=== PATIENT | male | born 2000 | race Caucasian/White ===

== ENCOUNTER 2024-06-23 12:53 | Emergency (ER) | payer OTHER, SELFPAY ==
--- NOTE | ~2024-06-23 | CT_ITS ---
EXAMINATION: CT abdomen pelvis w con DATE: 06/23/2024 14:18 INDICATION: Bilateral lower quadrant abdominal pain TECHNIQUE: Computed tomography (CT) of the abdomen and pelvis was performed with 100 mL Omnipaque-350 intravenous contrast. Automated exposure control and iterative reconstruction technique were employe d. The dose-length product was 831.18 mGy-cm. COMPARISON: None FINDINGS: Lung bases are clear. Heart size normal. No pericardial or pleural effusion. Diffuse hepatic steatosi s with focal sparing along the gallbladder fossa. Gallbladder, spleen, pancreas, bilateral adrenal gl ands and kidneys are normal. Normal retrocecal appendix. There is mild inflammatory stranding in the left lower quadrant surrounding an ovoid macroscopic fat attenuation epiploic appendage arising from the proximal sigmoid colon. No bowel obstruction. Bladder is normal. Small fat-containing left inguin al hernia. Trace amount of likely reactive free fluid in the pelvis. No abscess or free intraperitone al gas. No pathologically enlarged abdominal or pelvic lymphadenopathy. Bones are unremarkable. IMPRESSION: 1. Left lower quadrant epiploic appendagitis at the proximal sigmoid colon Reviewed, dictated and finalized at location B. [facility] COURT CLERK
[2024-06-23 12:55] VITALS: BP 160/87; PULSE 91; RESP 18; TEMP 36.3; O2SAT 99
[2024-06-23 13:34] LABS: Basophils Absolute Auto 0.1 K/mm3 (0.0-0.1); Basophils Percent Auto 0.4 % (0.2-1.2); Eosinophils Absolute Auto 0.1 K/mm3 (0-0.3); Eosinophils Percent Auto 0.8 % (0-4.4); Hematocrit 44.2 % (42.0-52.0); Hemoglobin 15.8 g/dL (14.0-18.0); Immature Granulocyte Absolute 0.01 K/mm3 (0.00-0.031); Immature Granulocyte Percent A 0.1 % (0-0.5); Lymphocytes Absolute Auto 4.04 K/mm3 (0.9-3.2); Lymphocytes Percent Auto 36.2 % (18.3-44.2); Mean Corpuscular HGB Conc 35.7 g/dl (32-36); Mean Corpuscular Hemoglobin 29.9 pg (26-34); Mean Corpuscular Volume 83.6 fl (80-100); Mean Platelet Volume 9.7 fl (7.4-10.4); Monocytes Absolute Auto 0.8 K/mm3 (0.1-0.6); Monocytes Percent Auto 7.5 % (2.6-8.5); Neutrophils Absolute Auto 6.1 K/mm3 (1.3-6.7); Platelet Count Result 274 k/mm3 (150-375); Red Blood Count 5.29 M/mm3 (4.6-6.20); White Blood Count 11.2 K/mm3 (4.5-10.0)
[2024-06-23 13:45] LABS: Alanine Aminotransferase 57 U/L (6-50); Alkaline Phosphatase 59 U/L (38-126); Anion Gap 9 mmol/L (4-12); Aspartate Amino Transferase 36 U/L (17-59); Bilirubin,Total 0.7 mg/dL (0.2-1.3); Blood Urea Nitrogen 10 mg/dL (9-20); Calcium 9.4 mg/dL (8.4-10.2); Carbon Dioxide 27 mmol/L (22-30); Chloride 103 mmol/L (98-107); Estimated CRCL calculation 140 ml/min; Estimated Glomerular Filt Rate > 60; Glucose 100 mg/dL (65-110); Lipase 40 U/L (23-300); Potassium 3.7 mmol/L (3.4-5.0); Sodium 139 mmol/L (137-145)
[2024-06-23 13:51] VITALS: BP 134/90; PULSE 77; RESP 14; O2SAT 100
--- NOTE | 2024-06-23 14:13 | ED.GENADULT ---
HPI - General Adult General Chief complaint: Abdominal Pain Stated complaint: LLQ pain with tenderness Time Seen by Provider: 06/23/24 13:06 History of Present Illness HPI narrative: Patient is a 23-year-old male who presents ER with lower abdominal pain. Began yesterday. Located in bilateral lower quadrants but worse on left side. No diarrhea. No fevers or chills or sweats. Has found no alleviating factors. No urinary symptoms. Was seen at urgent care which showed a normal urinalysis. Related Data Allergies Allergy/AdvReac Type Severity Reaction Status Date / Time No Known Allergies Allergy Unverified 02/11/12 19:37 Review of Systems Review of Systems: All systems reviewed & are unremarkable except as noted in HPI and below Constitutional: Constitutional: Reports no additional constitutional complaints ENT: Reports system reviewed and no additional complaints, except as documented Cardiovascular: Cardiovascular: Reports no additional cardiovascular complaints Respiratory: Respiratory: Reports no additional respiratory complaints Gastrointestinal: Gastrointestinal: Reports abdominal pain, Denies diarrhea, Denies nausea and Denies vomiting Integumentary/Breasts: Skin/Breast: Reports system reviewed and no additional complaints, except as docu PMFSH Past Medical History Medical History (Updated 06/23/24 @ 15:27 by Silver Powers MD) Healthy adult male Surgical History Surgical History (Updated 06/23/24 @ 14:15 by Silver Powers MD) No history of previous surgery Exam Narrative: GENERAL: Well-appearing, well-nourished, and in no acute distress. HEAD: Normocephalic, atraumatic. ENT: Mucous membranes moist. CHEST: Clear to auscultation. No respiratory distress. HEART: Regular rate and rhythm. Normal peripheral pulses. ABDOMEN: Soft, tender palpation bilateral lower quadrants left greater than right with guarding, nondistended. EXTREMITIES: Normal range of motion. No edema. SKIN: Warm, dry, no rash. NEURO: Alert and oriented x3. PSYCH: Normal mood and affect. Course Vital Signs Vital signs: Vital Signs Temperature 97.4 F L 06/23/24 12:55 Pulse Rate 91 06/23/24 12:55 Respiratory Rate 18 06/23/24 12:55 Blood Pressure 160/87 H 06/23/24 12:55 Pulse Oximetry 99 06/23/24 12:55 Oxygen Delivery Room Air 06/23/24 12:55 Temperature 98.5 F 06/23/24 15:45 Pulse Rate 74 06/23/24 15:45 Respiratory Rate 15 06/23/24 15:45 Blood Pressure 117/75 06/23/24 15:45 Pulse Oximetry 100 06/23/24 15:45 Oxygen Delivery Room Air 06/23/24 12:55 Medical Decision Making Vital Signs Vital Signs: Vital Signs Temperature 97.4 F L 06/23/24 12:55 Pulse Rate 91 06/23/24 12:55 Respiratory Rate 18 06/23/24 12:55 Blood Pressure 160/87 H 06/23/24 12:55 Pulse Oximetry 99 06/23/24 12:55 Oxygen Delivery Room Air 06/23/24 12:55 Temperature 98.5 F 06/23/24 15:45 Pulse Rate 74 06/23/24 15:45 Respiratory Rate 15 06/23/24 15:45 Blood Pressure 117/75 06/23/24 15:45 Pulse Oximetry 100 06/23/24 15:45 Oxygen Delivery Room Air 06/23/24 12:55 Lab Data 06/23/24 13:27 06/23/24 13:27 Labs: Lab Results 06/23/24 Range/Units 13:27 WBC 11.2 H (4.5-10.0) K/mm3 RBC 5.29 (4.6-6.20) M/mm3 Hgb 15.8 (14.0-18.0) g/dL Hct 44.2 (42.0-52.0) % MCV 83.6 (80-100) fl MCH 29.9 (26-34) pg MCHC 35.7 (32-36) g/dl RDW 12.0 (11.5-14.5) % Plt Count 274 (150-375) k/mm3 MPV 9.7 (7.4-10.4) fl Immature Gran % (Auto) 0.1 (0-0.5) % Neut % (Auto) 55.0 (45.5-73.1) % Lymph % (Auto) 36.2 (18.3-44.2) % [place] % (Auto) 7.5 (2.6-8.5) % Eos % (Auto) 0.8 (0-4.4) % Baso % (Auto) 0.4 (0.2-1.2) % Lymph # (Auto) 4.04 H (0.9-3.2) K/mm3 [place] # (Auto) 0.8 H (0.1-0.6) K/mm3 Eos # (Auto) 0.1 (0-0.3) K/mm3 Baso # (Auto) 0.1 (0.0-0.1) K/mm3 Abs Immat Gran (auto) 0.01 (0.00-0.031) K/mm3 Absolute Neuts (auto) 6.1 (1.3-6.7) K/mm3 Absolute Nucleated RBC 0.000 (0.0-0.012) K/mm3 Nucleated RBC % 0.0 (0.0-0.2) % Sodium 139 (137-145) mmol/L Potassium 3.7 (3.4-5.0) mmol/L Chloride 103 (98-107) mmol/L Carbon Dioxide 27 (22-30) mmol/L Anion Gap 9 (4-12) mmol/L BUN 10 (9-20) mg/dL Creatinine 0.80 (0.7-1.3) mg/dL Estim Creat Clear Calc 140 ml/min Estimated GFR > 60 (59 - ) Glucose 100 (65-110) mg/dL Calcium 9.4 (8.4-10.2) mg/dL Total Bilirubin 0.7 (0.2-1.3) mg/dL AST 36 (17-59) U/L ALT 57 H (6-50) U/L Alkaline Phosphatase 59 (38-126) U/L Total Protein 9.0 H (6.3-8.2) g/dL Albumin 5.0 (3.5-5.1) g/dL Lipase 40 (23-300) U/L Imaging Data Radiologist's impression: ITS Impressions Abdomen/Pelvis CT 06/23/24 14:23 IMPRESSION: 1. Left lower quadrant epiploic appendagitis at the proximal sigmoid colon Discharge Plan Discharge Clinical Impression: Epiploic appendagitis Patient Disposition: Home, Self-Care Condition: Stable Instructions: Epiploic Appendagitis (ED) Additional Instructions: Return to the emergency department if you develop severe abdominal pain, severe nausea and vomiting to the point where you are unable to keep down fluids, if you develop chest pain or difficulty breathing, blood in your stool, dizziness or fainting, or if you develop any other new or concerning symptoms as these could be signs of more serious medical illness. Try to stay well hydrated. Prescriptions: New hydrocodone-acetaminophen 5-325 mg tablet 1 tablet PO Q6H PRN (Reason: pain) Qty: 10 0RF naproxen 375 mg tablet 375 mg PO BID Qty: 14 0RF Follow-up/Referrals: Tripp Lr MD [Physician] - 1 Week PHYSICIAN,CARBIDE OPERATOR [Primary Care Provider] - Stand Alone Forms: Work/School Release IP
[2024-06-23 15:45] VITALS: BP 117/75; PULSE 74; RESP 15; TEMP 36.9; O2SAT 100
== END 2024-06-23 15:45 | disposition home or self-care (01) ==
PROVIDERS: Emergency Provider Emergency Medicine
DX: K63.89 Other specified diseases of intestine (principal)
CPT/HCPCS: 36415; 74177; 80053; 83690; 85025; 99284; Q9967

== ENCOUNTER 2024-11-29 11:19 | Emergency (ER) | payer OTHER, SELFPAY ==
--- NOTE | ~2024-11-29 | XR_ITS ---
EXAMINATION: XR chest 1V portable DATE: 11/29/2024 13:22 INDICATION: Symptoms of pneumonia TECHNIQUE: Upright AP view of the chest was obtained. COMPARISON: None FINDINGS: The lungs are clear with no focal airspace opacities, pulmonary edema, pleural effusion or pneumothor ax. The cardiomediastinal silhouette is normal. Visualized bones and soft tissues are unremarkable. IMPRESSION: 1. Normal chest radiograph. Reviewed, dictated and finalized at location A. IMPRESSION: 1. Normal chest radiograph.
[2024-11-29 11:35] VITALS: BP 150/102; PULSE 122; RESP 16; TEMP 36.9; O2SAT 99
[2024-11-29 12:26] VITALS: BP 142/94; PULSE 115; RESP 18; O2SAT 98
[2024-11-29 12:42] VITALS: BP 140/97; PULSE 112; RESP 18; O2SAT 98
--- NOTE | 2024-11-29 12:43 | PC.NURSE ---
Asked patient to give urine sample. Pt states he cannot at this time and will use his call light when he feels he can use the restroom.
[2024-11-29 12:45] LABS: Basophils Absolute Auto 0.1 K/mm3 (0.0-0.1); Basophils Percent Auto 0.3 % (0.2-1.2); Eosinophils Absolute Auto 0.1 K/mm3 (0-0.3); Eosinophils Percent Auto 0.5 % (0-4.4); Hematocrit 44.4 % (42.0-52.0); Hemoglobin 15.1 g/dL (14.0-18.0); Immature Granulocyte Absolute 0.05 K/mm3 (0.00-0.031); Immature Granulocyte Percent A 0.3 % (0-0.5); Lymphocytes Absolute Auto 2.76 K/mm3 (0.9-3.2); Lymphocytes Percent Auto 17.8 % (18.3-44.2); Mean Corpuscular Hemoglobin 28.9 pg (26-34); Mean Corpuscular Volume 84.9 fl (80-100); Mean Platelet Volume 9.6 fl (7.4-10.4); Monocytes Absolute Auto 1.6 K/mm3 (0.1-0.6); Monocytes Percent Auto 10.4 % (2.6-8.5); Neutrophils Absolute Auto 10.9 K/mm3 (1.3-6.7); Neutrophils Percent Auto 70.7 % (45.5-73.1); Platelet Count Result 252 k/mm3 (150-375); Red Blood Count 5.23 M/mm3 (4.6-6.20); Red Cell Distribution Width 12.4 % (11.5-14.5); White Blood Count 15.5 K/mm3 (4.5-10.0)
[2024-11-29 12:57] LABS: Alanine Aminotransferase 84 U/L (6-50); Albumin Level 4.8 g/dL (3.5-5.1); Alkaline Phosphatase 56 U/L (38-126); Anion Gap 13 mmol/L (4-12); Aspartate Amino Transferase 82 U/L (17-59); Bilirubin,Total 1.1 mg/dL (0.2-1.3); Blood Urea Nitrogen 9 mg/dL (9-20); Carbon Dioxide 24 mmol/L (22-30); Chloride 103 mmol/L (98-107); Estimated CRCL calculation 132 ml/min; Estimated Glomerular Filt Rate > 60; Glucose 146 mg/dL (65-110); Lipase 33 U/L (23-300); Potassium 4.1 mmol/L (3.4-5.0); Sodium 140 mmol/L (137-145)
[2024-11-29] MEDS: LACTATED RINGERS 1,000 ML 999 ML IV CONT (13:23)
[2024-11-29] MEDS: KETOROLAC 15 MG/ML VIAL (*BKC) IV PUSH (13:23)
[2024-11-29 13:24] VITALS: BP 136/89; PULSE 113; RESP 25; O2SAT 96
[2024-11-29 14:21] VITALS: BP 124/85; PULSE 101; RESP 18; O2SAT 96
[2024-11-29] MEDS: dexAMETHasone SOD PHOS INJ 10 MG/ML 1 ML VIAL IV PUSH (14:24)
--- NOTE | 2024-11-29 14:28 | ED_ITS ---
HPI - Nausea/Vomiting/Diarrhea General Chief complaint: Nausea/Vomiting/Diarrhea Stated complaint: vomiting Time Seen by Provider: 11/29/24 13:01 History of Present Illness HPI Narrative: 24-year-old otherwise healthy male presenting to the emergency department viral type symptoms including nausea, vomiting, body aches, headache for last couple days. He has been taking DayQuil and [id number] Sudafed for his symptoms. Went to urgent care yesterday and was diagnosed with viral syndrome and sent home. He presents today as he was concerned about his sore throat. Was tested for strep and negative yesterday. Tested for viral panel and also was negative. Denies any abdominal pain, vomiting presently, diarrhea constipation. No chest pain shortness a breath. No fever chills. Related Data Allergies Allergy/AdvReac Type Severity Reaction Status Date / Time No Known Allergies Allergy Verified 11/29/24 13:23 Review of Systems 2 Review of Systems: As reviewed above in HPI [facility] Past Medical History Medical History Healthy adult male Surgical History Surgical History No history of previous surgery Exam 2 Narrative: GENERAL: [Well-appearing, well-nourished, and in no acute distress.] HEAD: [Normocephalic, atraumatic.] EYES: [PERRLA and EOMI.] ENT: Erythematous posterior oropharynx without any exudates or tonsillar enlargement. No uvular enlargement. NECK: Supple. CHEST: [Clear to auscultation. No respiratory distress.] HEART: [Regular rate and rhythm]. No murmur heard. [Normal peripheral pulses.] ABDOMEN: [Soft, nondistended], [nontender], [No rigidity or guarding] EXTREMITIES: Normal range of motion. [No edema.] SKIN: Warm, dry, no rash. NEURO: [No focal deficits]. Alert and oriented [x3.] PSYCH: [Normal mood and affect.] Course Vital Signs Vital signs: Vital Signs Temperature 36.9 C 11/29/24 11:35 Pulse Rate 122 H 11/29/24 11:35 Respiratory Rate 16 11/29/24 11:35 Blood Pressure 150/102 H 11/29/24 11:35 Pulse Oximetry 99 11/29/24 11:35 Temperature 36.9 C 11/29/24 11:35 Pulse Rate 101 H 11/29/24 14:21 Respiratory Rate 18 11/29/24 14:21 Blood Pressure 124/85 11/29/24 14:21 Pulse Oximetry 96 11/29/24 14:21 Oxygen Delivery Room Air 11/29/24 12:26 MDM - Nausea/Vomiting/Diarrhea MDM Narrative Medical decision making narrative: 24-year-old otherwise healthy male presenting to the emergency room with nausea vomiting and body aches as well as a headache for several days. He has posterior or pharyngeal erythema consistent with viral pharyngitis. Tested negative for COVID flu and RSV and tested negative for strep yesterday. He is otherwise well-appearing, not dehydrated and has no abdominal pain or tenderness. Soft nontender and nondistended abdomen. Overall very well- appearing and otherwise healthy male. No fever or blood pressure concerns here in the emergency department. Patient likely has viral syndrome and his lab shows slight leukocytosis of 15.5 but no anemia or platelet concerns. Normal renal function normal electrolytes. Mildly elevated LFTs consistent with probable viral syndrome given the lack of any abdominal pain or concerning physical findings. Patient was started on Decadron here for viral pharyngitis type pain and will be sent home on some steroids for next several days. Patient encouraged to follow-up with primary care provider. Encouraged to take good oral intake and take [id number] symptom controlling medications. Patient's questions were answered and he was safe for discharge home at this time. Medical Records Attestation: I reviewed the patient's medical records. Lab Data Attestation: I reviewed the patient's lab results. 11/29/24 12:39 11/29/24 12:40 Labs: Lab Results 11/29/24 11/29/24 11/29/24 Range/Units 12:39 12:40 13:43 WBC 15.5 H (4.5-10.0) K/mm3 RBC 5.23 (4.6-6.20) M/mm3 Hgb 15.1 (14.0-18.0) g/dL Hct 44.4 (42.0-52.0) % MCV 84.9 (80-100) fl MCH 28.9 (26-34) pg MCHC 34.0 (32-36) g/dl RDW 12.4 (11.5-14.5) % Plt Count 252 (150-375) k/mm3 MPV 9.6 (7.4-10.4) fl Immature Gran % (Auto) 0.3 (0-0.5) % Neut % (Auto) 70.7 (45.5-73.1) % Lymph % (Auto) 17.8 L (18.3-44.2) % [place] % (Auto) 10.4 H (2.6-8.5) % Eos % (Auto) 0.5 (0-4.4) % Baso % (Auto) 0.3 (0.2-1.2) % Lymph # (Auto) 2.76 (0.9-3.2) K/mm3 [place] # (Auto) 1.6 H (0.1-0.6) K/mm3 Eos # (Auto) 0.1 (0-0.3) K/mm3 Baso # (Auto) 0.1 (0.0-0.1) K/mm3 Abs Immat Gran (auto) 0.05 H (0.00-0.031) K/mm3 Absolute Neuts (auto) 10.9 H (1.3-6.7) K/mm3 Absolute Nucleated RBC 0.000 (0.0-0.012) K/mm3 Nucleated RBC % 0.0 (0.0-0.2) % Sodium 140 (137-145) mmol/L Potassium 4.1 (3.4-5.0) mmol/L Chloride 103 (98-107) mmol/L Carbon Dioxide 24 (22-30) mmol/L Anion Gap 13 H (4-12) mmol/L BUN 9 (9-20) mg/dL Creatinine 0.84 (0.7-1.3) mg/dL Estim Creat Clear Calc 132 ml/min Estimated GFR > 60 (59 - ) Glucose 146 H (65-110) mg/dL Calcium 9.0 (8.4-10.2) mg/dL Total Bilirubin 1.1 (0.2-1.3) mg/dL AST 82 H (17-59) U/L ALT 84 H (6-50) U/L Alkaline Phosphatase 56 (38-126) U/L Total Protein 8.0 (6.3-8.2) g/dL Albumin 4.8 (3.5-5.1) g/dL Lipase 33 (23-300) U/L Influenza A (RT-PCR) Pending Influenza B (RT-PCR) Pending RSV (RT-PCR) Pending SARS-CoV-2 RNA (RT-PCR) Pending Discharge Plan Discharge Clinical Impression: Acute viral syndrome Patient Disposition: Home Condition: Stable Instructions: Antibiotic Form, Viral Syndrome (ED) Additional Instructions: Your laboratory studies show that your likely finding off of infection with a likely virus given that your symptoms are very localized to your throat. Your swabs were negative here today, vital signs reassuring after some fluids. We will send you home with some steroids for pain control of your sore throat. If you start experiencing any abdominal pain, diarrhea, fevers or any other concerns please return to the emergency department otherwise continue taking [id number] remedies and follow-up with regular primary care provider. Patient Language: [place] Citizen Prescriptions: New methylprednisolone [Medrol (Kamaljit)] 4 mg tablets,dose pack See Rx Instructions PO .COMPLEX Qty: 21 0RF Rx Instructions: orally per package directions No Action hydrocodone-acetaminophen 5-325 mg tablet 1 tablet PO Q6H PRN (Reason: pain) Qty: 10 0RF naproxen 375 mg tablet 375 mg PO BID Qty: 14 0RF Follow-up/Referrals: UNKNOWN,DOCTOR [Primary Care Provider] - Time of Disposition: 14:38
[2024-11-29 14:29] LABS: Influenza A QL RT-PCR Negative (Negative); Influenza B QL RT-PCR Negative (Negative); RSV RNA, RT-PCR Negative (Negative); SARS-CoV-2 RNA PCR Negative (Negative)
[2024-11-29 15:09] LABS: Add Urine Microscopic? YES; Appearance Urine Cloudy (Clear); Bacteria Urine None Seen /hpf; Bilirubin Urine Negative (Negative); Blood Urine Negative (Negative); Color Urine Dark Yellow (Yellow); Glucose Urine UA Negative (Negative); Ketones Urine 1+ mg/dL (Negative); Leukocyte Esterase Ur Trace LEU/UL (Negative); Need Manual Microscopic Reviewed; Nitrate Urine Negative (Negative); Protein Urine 3+ mg/dL (Negative); RBC Urine 0-2 /hpf (0-2); Specific Grav Ur 1.028 (1.001-1.035); Squamous Epithelial Cell Urine None Seen /hpf (Few); pH Urine 5.5 (5.0-9.0)
== END 2024-11-29 15:05 | disposition home or self-care (01) ==
PROVIDERS: Emergency Medicine; Emergency Provider Student in an Organized Health Care Education/Training Program
DX: B34.9 Viral infection, unspecified (principal); Z20.822 Contact with and (suspected) exposure to COVID-19
CPT/HCPCS: 36415; 71045; 80053; 81001; 83690; 85025; 87086; 87637; 96361; 96374; 96375; 99284; J1100; J1885; J7120